=== PATIENT | female | born 2000 | race Caucasian/White ===

== ENCOUNTER 2019-12-02 03:41 | Inpatient (IN) | payer MEDICAID ==
[~2019-12-02] VITALS: Ht 157.5 cm; Wt 48.7 kg
[2019-12-02] MEDS ORDERED: QUEtiapine FUMARATE 100 MG TABLET PO PRN (05:15)
[2019-12-02] MEDS ORDERED: ZOLPIDEM TARTRATE 10 MG TABLET PO PRN (05:15)
[2019-12-02 06:25] VITALS: BP 122/73
[2019-12-02] MEDS ORDERED: ACETAMINOPHEN 325 MG TABLET PO PRN (07:45)
[2019-12-02] MEDS ORDERED: ONDANSETRON HCL 4 MG TABLET PO PRN (07:45)
[2019-12-02] MEDS ORDERED: ALBUTEROL SULFATE HFA 90 MCG/PUFF 8 GM INHALER IH PRN (07:45)
[2019-12-02] MEDS ORDERED: LOPERAMIDE HCL 2 MG CAPSULE PO PRN (07:45)
[2019-12-02] MEDS ORDERED: IBUPROFEN 400 MG TABLET PO PRN (07:45)
[2019-12-02] MEDS ORDERED: CloNIDine HCL 0.1 MG TABLET PO PRN (07:45)
[2019-12-02] MEDS ORDERED: GuaiFENesin/D-METHORPHAN [SUGAR-FREE] 200-20MG/10 ML SYRUP UDCUP PO PRN (07:45)
[2019-12-02] MEDS ORDERED: MAGNESIUM HYDROXIDE SUSPENSION 30 ML UDCUP PO PRN (07:45)
[2019-12-02] MEDS ORDERED: PETROLATUM,WHITE 28 GM JELLY TP PRN (07:45)
[2019-12-02] MEDS ORDERED: MAG HYDROX/AL HYDROX/SIMETH ES 30 ML SUSPENSION UDCUP PO PRN (07:45)
[2019-12-02] MEDS ORDERED: DOCUSATE SODIUM 100 MG CAPSULE PO PRN (07:45)
[2019-12-02] MEDS ORDERED: NICOTINE 14 MG/24 HOUR PATCH TD PRN (07:45)
[2019-12-02 10:58] VITALS: BP 139/86
[2019-12-02 16:43] VITALS: BP 119/78
[2019-12-03 05:18] VITALS: BP 102/63
[2019-12-03 08:10] VITALS: BP 119/73
[2019-12-03] MEDS ORDERED: LORazepam 2 MG TABLET PO PRN (12:10)
[2019-12-03] MEDS ORDERED: CITALOPRAM HYDROBROMIDE 10 MG TABLET PO SCH (12:15)
[2019-12-03 16:13] VITALS: BP 120/71
[2019-12-03 20:20] VITALS: BP 148/90
[2019-12-04] MEDS ORDERED: CITA10TA99 PO (11:55)
== END 2019-12-03 21:30 | disposition other institution (70) | DRG 881 ==
LOC: B3A 05:00
PROVIDERS: ADMIT Psychiatry & Neurology Child & Adolescent Psychiatry; ATTEND Psychiatry & Neurology Psychiatry
DX: F32.9 Major depressive disorder, single episode, unspecified (principal); U07.1 COVID-19; F10.10 Alcohol abuse, uncomplicated; F19.10 Other psychoactive substance abuse, uncomplicated; T50.992A Poisoning by other drugs, medicaments and biological substances, intentional self-harm, initial encounter; F43.10 Post-traumatic stress disorder, unspecified; F90.9 Attention-deficit hyperactivity disorder, unspecified type; J45.909 Unspecified asthma, uncomplicated; Z72.0 Tobacco use; Y92.89 Other specified places as the place of occurrence of the external cause
CPT/HCPCS: U0003-CS; Z7610

== ENCOUNTER 2019-12-02 12:40 | Emergency (ER) | payer MEDICAID ==
[~2019-12-02] VITALS: Ht 157.5 cm; Wt 47.7 kg
[2019-12-02 15:05] VITALS: BP 125/89
[2019-12-04] MEDS ORDERED: CITA10TA99 PO (11:55)
== END 2019-12-02 15:59 | disposition home or self-care (01) ==
LOC: EMS 12:58
DX: F32.9 Major depressive disorder, single episode, unspecified (principal); F17.210 Nicotine dependence, cigarettes, uncomplicated; Z20.828 Contact with and (suspected) exposure to other viral communicable diseases
CPT/HCPCS: 87426